=== PATIENT | female | born 1960 | race Caucasian/White ===

== ENCOUNTER 2018-05-05 13:02 | Emergency (ER) | payer OTHER ==
[~2018-05-05] VITALS: Ht 167.6 cm; Wt 64.9 kg
[2018-05-05 13:07] VITALS: BP 130/92
[2018-05-05] MEDS: KETOROLAC 30 MG/ML VIAL IM ONE (14:13)
[2018-05-05 14:33] VITALS: BP 122/88
== END 2018-05-05 14:33 | disposition home or self-care (01) ==
LOC: MED 13:02
DX: M79.672 Pain in left foot (principal); Z88.6 Allergy status to analgesic agent; Z88.8 Allergy status to other drugs, medicaments and biological substances; W01.0XXA Fall on same level from slipping, tripping and stumbling without subsequent striking against object, initial encounter; Y93.89 Activity, other specified; Y92.89 Other specified places as the place of occurrence of the external cause; Y99.8 Other external cause status
CPT/HCPCS: 73610; 73630; 96372; 99284; J1885; Q0092